=== PATIENT | female | born 1955 | race Caucasian/White ===

== ENCOUNTER 2017-08-15 10:26 | Emergency (ER) | payer MEDICARE, OTHER ==
[~2017-08-15] VITALS: Ht 162.6 cm; Wt 50.5 kg
[~2017-08-15 10:26] MED LIST: CLOR15TA PO; IBAN150T3 PO; TRAM50TA PO; TRAZ100T4 PO
[2017-08-15 10:31] VITALS: BP 128/65; PULSE 91; RESP 18; TEMP 98; O2SAT 99
[2017-08-15] MEDS ORDERED: SODIUM CHLOR 0.9% 1000 ML INJ 1,000 ML IV ONE ×2 (10:45)
[2017-08-15] MEDS ORDERED: ONDANSETRON HCL 4 MG/2 ML VIAL IV PUSH ONE (10:45)
--- NOTE | 2017-08-15 10:45 | PD ---
HPI Chief Complaint: GI Complaint Time Seen by Provider: 10:36 Travel History International Travel<30 days: No Contact w/Intl Traveler<30days: No Traveled to known affect area: No History of Present Illness HPI This 62-year-old female is complaining of vomiting. She says she started vomiting around 7:00 last night and had persistent vomiting. He has some epigastric discomfort which started after the vomiting. There has not been any diarrhea. She has a history of irritable bowel syndrome PFSH Past Medical History Arthritis: Yes (OSTEOPOROSIS) Anxiety: Yes Diminished Hearing: No Musculoskeletal: Yes (KYPHOPLASTY S/P L4-5 & COCCYX FX 2007) Immunizations Current: Yes ?: Not Menopausal: Yes : 3 Para: 2 Miscarriage: 1 Tubal Ligation: Yes Past Surgical History Abdominal Surgery: Yes (EXPLORATORY LAP- TUMOR REMOVED FROM ABDOMEN) Appendectomy: Yes Gynecologic Surgery: Yes (LT OOPHERECTOMY) Social History Alcohol Use: No Tobacco Use: No Substance Use: No Allergies-Medications (Allergen,Severity, Reaction): Coded Allergies: ibuprofen (Unverified Allergy, Severe, FACIAL AND BODY SWELLING, 08/15/17) Reported Meds & Prescriptions Reported Meds & Active Scripts Active Tramadol (Tramadol HCl) 50 Mg Tab 50 Mg PO 5 TIMES A DAY PRN refill on/after 10/08/17 Tramadol (Tramadol HCl) 50 Mg Tab 50 Mg PO 5 TIMES A DAY PRN refill on/after 09/10/17 Tramadol (Tramadol HCl) 50 Mg Tab 50 Mg PO 5 TIMES A DAY PRN fill on/after 08/10/17 Clorazepate (Clorazepate Dipotassium) 15 Mg Tab 7.5 Mg PO BID PRN refill on 10/14/17 Clorazepate (Clorazepate Dipotassium) 15 Mg Tab 7.5 Mg PO BID PRN refill on 09/16/17 Clorazepate (Clorazepate Dipotassium) 15 Mg Tab 7.5 Mg PO BID PRN fill on 08/16/17 Reported Desyrel 100 Mg Tab (Trazodone Hcl) 100 Mg Tab 100 Mg PO HS Review of Systems General / Constitutional: No: Fever, Chills Eyes: No: Diploplia, Blurred Vision HENT: No: Headaches, Vertigo Cardiovascular: No: Chest Pain or Discomfort, Palpitations Respiratory: No: Cough, Shortness of Breath Gastrointestinal: Positive: Nausea, Vomiting, Abdominal Pain, No: Diarrhea Genitourinary: No: Frequency, Dysuria Skin: No Rash, No Itching Neurologic: No: Weakness, Dizziness Psychiatric: No: Anxiety, Depression Endocrine: No: Heat Intolerance Hematologic/Lymphatic: No: Easy Bruising Physical Exam Narrative GENERAL: Thin female SKIN: Focused skin assessment warm/dry. HEAD: Atraumatic. Normocephalic. EYES: Pupils equal and round. No scleral icterus. No injection or drainage. ENT: No nasal bleeding or discharge. Mucous membranes pink and moist. NECK: Trachea midline. No JVD. CARDIOVASCULAR: Regular rate and rhythm. No murmur appreciated. RESPIRATORY: No accessory muscle use. Clear to auscultation. Breath sounds equal bilaterally. GASTROINTESTINAL: Abdomen soft, non-tender, nondistended. Hepatic and splenic margins not palpable. MUSCULOSKELETAL: No obvious deformities. No clubbing. No cyanosis. No edema. NEUROLOGICAL: Awake and alert. No obvious cranial nerve deficits. Motor grossly within normal limits. Normal speech. PSYCHIATRIC: Appropriate mood and affect; insight and judgment normal. Data Data Last Documented VS Vital Signs Date Time Temp Pulse Resp B/P (MAP) Pulse Ox O2 Delivery O2 Flow Rate FiO2 08/15/17 10:31 98.0 91 18 128/65 (86) 99 Orders Orders Complete Blood Count With Diff (08/15/17 10:41) Comprehensive Metabolic Panel (08/15/17 10:41) Lipase (08/15/17 10:41) Sodium Chlor 0.9% 1000 Ml Inj (Ns 1000 M (08/15/17 10:45) Sodium Chlor 0.9% 1000 Ml Inj (Ns 1000 M (08/15/17 10:45) Ondansetron Inj (Zofran Inj) (08/15/17 10:45) Labs Laboratory Tests Test 08/15/17 11:04 White Blood Count 6.7 TH/MM3 Red Blood Count 4.48 MIL/MM3 Hemoglobin 12.8 GM/DL Hematocrit 38.6 % Mean Corpuscular Volume 86.3 FL Mean Corpuscular Hemoglobin 28.5 PG Mean Corpuscular Hemoglobin Concent 33.1 % Red Cell Distribution Width 11.8 % Platelet Count 206 TH/MM3 Mean Platelet Volume 7.6 FL Neutrophils (%) (Auto) 89.2 % Lymphocytes (%) (Auto) 4.6 % Monocytes (%) (Auto) 4.5 % Eosinophils (%) (Auto) 0.5 % Basophils (%) (Auto) 1.2 % Neutrophils # (Auto) 6.0 TH/MM3 Lymphocytes # (Auto) 0.3 TH/MM3 Monocytes # (Auto) 0.3 TH/MM3 Eosinophils # (Auto) 0.0 TH/MM3 Basophils # (Auto) 0.1 TH/MM3 CBC Comment DIFF FINAL Differential Comment Blood Urea Nitrogen 11 MG/DL Creatinine 0.67 MG/DL Random Glucose 114 MG/DL Total Protein 6.6 GM/DL Albumin 3.4 GM/DL Calcium Level 8.1 MG/DL Alkaline Phosphatase 69 U/L Aspartate Amino Transf (AST/SGOT) 16 U/L Alanine Aminotransferase (ALT/SGPT) 14 U/L Total Bilirubin 0.6 MG/DL Sodium Level 138 MEQ/L Potassium Level 3.8 MEQ/L Chloride Level 103 MEQ/L Carbon Dioxide Level 29.6 MEQ/L Anion Gap 5 MEQ/L Estimat Glomerular Filtration Rate 89 ML/MIN Lipase 181 U/L [facility] Medical Decision Making Medical Screen Exam Complete: Yes Emergency Medical Condition: Yes Medical Record Reviewed: Yes Differential Diagnosis Differential includes gastroenteritis, dehydration, food poisoning, viral syndrome Narrative Course Lab work shows a white count of 6.1. Liver function tests and lipase are normal. She's been given IV fluids and Zofran with some improvement. She does not have abdominal pain at this time. Diagnosis Primary Impression: Acute gastritis Qualified Codes: K29.00 - Acute gastritis without bleeding Scripts Ondansetron Odt (Zofran Odt) 4 Mg Tab 4 MG SL Q6HR Y for Nausea/Vomiting, #10 TAB 0 Refills Prov: Roby Basilio MD 08/15/17 Disposition: 01 DISCHARGE HOME Condition: Stable Roby Basilio MD Aug 15, 2017 10:45
[2017-08-15 11:20] LABS: CHLORIDE 103 MEQ/L (98-107); SODIUM (NA) 138 MEQ/L (136-145)
[2017-08-15 11:24] LABS: BASOPHIL # 0.1 TH/MM3 (0-0.2); BASOPHIL % 1.2 % (0.0-2.0); EOSINOPHIL % 0.5 % (0.0-4.0); HEMATOCRIT 38.6 % (35.0-46.0); HEMOGLOBIN 12.8 GM/DL (11.6-15.3); LYMPH % 4.6 % (9.0-44.0); LYMPHOCYTE # 0.3 TH/MM3 (1.0-4.8); MEAN CELL VOLUME 86.3 FL (80.0-100.0); MEAN CORPUSCULAR HEMOGLOBIN 28.5 PG (27.0-34.0); MEAN CORPUSCULAR HGB CONC 33.1 % (32.0-36.0); MEAN PLATELET VOLUME 7.6 FL (7.0-11.0); MONO % 4.5 % (0.0-8.0); MONOCYTE # 0.3 TH/MM3 (0-0.9); NEUT % 89.2 % (16.0-70.0); PLATELET COUNT 206 TH/MM3 (150-450); RED BLOOD COUNT 4.48 MIL/MM3 (4.00-5.30); RED CELL DISTRIBUTION WIDTH 11.8 % (11.6-17.2); WHITE BLOOD COUNT 6.7 TH/MM3 (4.0-11.0)
[2017-08-15 11:25] LABS: CALCIUM 8.1 MG/DL (8.5-10.1)
[2017-08-15 11:26] LABS: ALBUMIN 3.4 GM/DL (3.4-5.0); BICARBONATE 29.6 MEQ/L (21.0-32.0); BLOOD UREA NITROGEN 11 MG/DL (7-18); GLUCOSE,RANDOM 114 MG/DL (74-106); LIPASE 181 U/L (73-393)
[2017-08-15 11:28] LABS: ALT (GPT) 14 U/L (10-53); AST (GOT) 16 U/L (15-37)
[2017-08-15 11:29] LABS: CREATININE 0.67 MG/DL (0.50-1.00); GLOMERULAR FILTRATION RATE 89 ML/MIN (>89)
[2017-08-15 11:30] LABS: TOTAL BILIRUBIN ADULT 0.6 MG/DL (0.2-1.0); TOTAL PROTEIN 6.6 GM/DL (6.4-8.2)
[2017-08-15 11:31] LABS: ALKALINE PHOSPHATASE 69 U/L (45-117)
[2017-08-15] MEDS ORDERED: ZOFR4TAB3 SL (11:37)
[2017-08-15 12:13] VITALS: BP 122/78
== END 2017-08-15 12:14 | disposition home or self-care (01) ==
LOC: PHED 10:26
DX: K29.00 Acute gastritis without bleeding (principal); M19.90 Unspecified osteoarthritis, unspecified site; M81.0 Age-related osteoporosis without current pathological fracture; F41.9 Anxiety disorder, unspecified; Z87.19 Personal history of other diseases of the digestive system
CPT/HCPCS: 80053; 83690; 85025; 96361; 96374; 99284; J2405; J7030